=== PATIENT | female | born 1995 | race Caucasian/White ===

== ENCOUNTER 2020-05-12 03:42 | Outpatient (CLI) | payer BC, SELFPAY ==
[2020-05-14 17:14] LABS: COVID-19 RT-PCR Result NEGATIVE (Negative)
== END 2020-05-12 04:02 ==
DX: Z11.59 Encounter for screening for other viral diseases (principal)
CPT/HCPCS: U0003

== ENCOUNTER 2020-06-08 02:00 | Outpatient (CLI) | payer BC, SELFPAY ==
[2020-06-09 14:42] LABS: COVID-19 RT-PCR UVMMC Result Negative (Negative)
== END 2020-06-08 02:20 ==
DX: Z20.828 Contact with and (suspected) exposure to other viral communicable diseases (principal)
CPT/HCPCS: U0003

== ENCOUNTER 2020-10-13 09:02 | Outpatient (CLI) | payer BC, SELFPAY ==
[2020-10-14 14:16] LABS: COVID-19 RT-PCR UVMMC Result Negative (Negative)
== END 2020-10-13 09:03 | disposition home or self-care (01) ==
DX: Z20.822 Contact with and (suspected) exposure to COVID-19 (principal)
CPT/HCPCS: U0003

== ENCOUNTER 2022-04-12 17:47 | Outpatient (REF) | payer BC, SELFPAY | END 2022-04-12 17:48 | disposition home or self-care (01) | LOC: LBN 17:47 | PROVIDERS: PCP Nurse Practitioner Family; Visit Provider Nurse Practitioner Family | DX: J02.9 Acute pharyngitis, unspecified (principal) | CPT/HCPCS: 87070 ==

== ENCOUNTER 2022-06-11 13:35 | Outpatient (REF) | payer BC, SELFPAY ==
--- NOTE | 2022-06-11 08:30 | PAPFT_PTH ---
PATIENT: Samanta Tellez LOC: [facility] U#:[id number] AGE/SX: 26/F ROOM: RE06/11/[address]: Levon Cowart DNP : 1995 BED: DIS: 06/11/2022 SPEC #: [id number] RECD: 06/12/22 13:15 STATUS: MILTON REMaico #: [id number] KERA: 06/11/22 08:[address]: Levon Mart DEPT: [facility] Cytology RECD BY: Sveta Portillo Tissues: 1 - CX/ENDOCX FOR PAP SMEARS Procedures: PAP THIN PREP/UVM Screening HPV DNA PROBE Comments: [id number]
[2022-06-11 14:07] LABS: HCT 38.7 % (36.0-46.0); HGB 12.5 g/dL (11.2-15.7); MCH 29.2 pg (27.0-33.0); MCHC 32.3 % (32.0-36.0); MCV 90 fL (80-95); MPV 11.3 fL (8.0-11.0); Platelet Count 254 10^3/uL (130-400); RBC 4.28 10^6/uL (3.93-5.22); RDW 13.4 % (11.7-14.6); RDW-SD 44.6 fL; WBC 5.33 10^3/uL (4.4-10.8)
[2022-06-11 14:16] LABS: ALT 19 U/L (14-59); AST 20 U/L (15-37); Albumin 3.8 g/dL (3.4-5.0); Alkaline Phosphatase 48 U/L (46-116); Anion Gap 9.5 mmol/L (3-11); BUN 13 mg/dL (7-18); Bilirubin, Total 0.3 mg/dL (0.2-1.0); CO2 25.5 mmol/L (21.0-32.0); CREATININE 0.8 mg/dL (0.55-1.02); Calcium 8.8 mg/dL (8.5-10.1); Calculated LDL 104 mg/dL (<100); Chloride 103 mmol/L (98-107); Cholesterol 218 mg/dL (<200); Glucose 83 mg/dL (74-106); HDL Cholesterol 105 mg/dL (40-60); Potassium 4.2 mmol/L (3.5-5.1); Sodium 138 mmol/L (136-145); Total Protein 7.5 g/dL (6.4-8.2); Triglyceride 48 mg/dL (<150)
[2022-06-12 09:59] LABS: Hepatitis C Ab w Rflx HCV PCR Negative (Negative)
[2022-06-12 10:23] LABS: HIV-1/2 Ag & Ab Screen Negative (Negative)
== END 2022-06-11 13:36 | disposition home or self-care (01) ==
LOC: LBN 13:35
PROVIDERS: PCP Nurse Practitioner Family; Visit Provider Nurse Practitioner Family
DX: Z13.220 Encounter for screening for lipoid disorders (principal); Z11.59 Encounter for screening for other viral diseases; Z11.4 Encounter for screening for human immunodeficiency virus [HIV]; Z12.4 Encounter for screening for malignant neoplasm of cervix; Z11.51 Encounter for screening for human papillomavirus (HPV); R53.83 Other fatigue
CPT/HCPCS: 80053; 80061; 85027; 86803; 87389; 88142; 87624

== ENCOUNTER 2022-12-27 14:04 | Emergency (ER) | payer BC, SELFPAY ==
[2022-12-27 14:20] VITALS: BP 110/72; PULSE 140; RESP 22; TEMP 38.1; O2SAT 100
--- NOTE | 2022-12-27 14:45 | DI.US_ITS ---
Exam(s) US PELVIS TRANSVAGINAL CT ABDOMEN PELVIS W EXAM: CT ABDOMEN PELVIS W CLINICAL HISTORY: RLQ abdominal pain and fever TECHNIQUE: Imaging Protocol: Axial computed tomography images with coronal and sagittal reformatted images were created and reviewed CONTRAST MATERIAL: Intravenous: Omnipaque 350 Contrast volume:73 mL Oral: No COMPARISON: US US PELVIS TRANSVAGINAL from 12/27/2022 FINDINGS: ABDOMEN: Lung Bases: Normal where visualized. Liver: Normal density. No measurable mass. Portal, Superior Mesenteric, and Splenic Veins: Unremarkable. Gallbladder and Biliary Tract: No radiodense calculus or dilation. Pancreas: Normal density, no abnormal calcifications or inflammatory process. Spleen: Normal. Adrenals: No masses seen. Kidneys: There are wedge-shaped areas of decreased attenuation in the left kidney. The findings rais e a question of pyelonephritis. No radiodense stones or obstructive uropathy. No masses seen. Abdominal Aorta: Abdominal portion non-dilated. Bowel: There is mild thickening of the wall of the distal stomach. This may be due to underdistentio n. There is no evidence of bowel obstruction. No other bowel wall thickening is seen. Appendix is unremarkable. Peritoneal Cavity: There is a trace amount of free fluid in the pelvis. No free air. Lymph Nodes: Within normal limits. Bones: Within normal limits for the patient's age. There is unilateral spondylolysis at L5 but no sp ondylolisthesis. Soft Tissues: Unremarkable. PELVIS: Bladder: Symmetric distention, no gross wall thickening. Reproductive Organs: There is a 6.1 x 5.1 cm left ovarian dermoid. The right ovary is unremarkable. The uterus is grossly unremarkable. Lymph Nodes: Within normal limits. Bones: Within normal limits for the patient's age. UTERUS: Position: Anteverted. Size: 6.3 long by 2.9 AP by 3.6 transverse cm Endometrium: 2 cm. Normal for patient's menstrual status. Myometrium: Unremarkable. Cervix: Unremarkable. OVARIES: The left ovarian dermoid is not well visualized on the ultrasound. It is best appreciated o n the CT scan from the same day. Right: 3.1 x 2.1 x 3 cm Cyst or mass: No suspicious cystic or solid masses. DOPPLER: Color: Uniform flow to to the right ovary. CUL-DE-SAC: Free fluid: None. Other: None. IMPRESSION: 1. There wedge-shaped deformities seen in the left kidney suspicious for pyelonephritis. 2. 6.1 x 5.1 cm left ovarian dermoid. 3. Normal appendix. 4. Mild thickening of the wall of the distal stomach. This may be due to underdistention. Gastritis cannot be excluded. 5. Findings were discussed with Dr. Yoder at 4:12 p.m. on 12/27/2022. RADIATION DOSE DELIVERED: 582.37mGy.cm Total DLP DATA REPOSITORY: All CT scans at this facility are submitted to the National Radiology Data Registry (NRDR) Dose Index Registry (DIR) with the [employer] (ACR). RADIATION OPTIMIZATION: All CT scans at this facility use at least one of these dose optimization te chniques: automated exposure control; mA and/or kV adjustment per patient size (includes targeted exa ms where dose is matched to clinical indication); or iterative reconstruction.
--- NOTE | 2022-12-27 14:45 | RT.EKG_ITS ---
APPROVED REPORT Exam: Resting ECG Reason for Exam: chest pain Patient Location: E HR:132 bpm ECG Measurements Heart Rate 132 AXIS AK 139 P 45 QRSd 81 QRS 90 QT 305 T -72 QTc 454 Conclusion Sinus tachycardia...rate> 99
--- NOTE | 2022-12-27 15:04 | ED.GENADUL_ITS ---
Discharge Plan Discharge Details Chief Complaint: Abd Prob Primary Care Provider: Levon Mart ED Provider: Tracey Lou Home Meds and New Rx's Prescriptions: No Action Claritin-D 12 Hour 5-120 mg tablet extended release 12 hr 1 tab PO Q12H Qty: 90 3RF mupirocin 2 % ointment 1 applic topical BID Qty: 15 0RF triamcinolone acetonide 0.025 % cream 1 applic TP BID Qty: 15 1RF Rx Instructions: Apply thin layer to skin patches on fingers 2x per day x 2 weeks. Then stop. norgestimate-ethinyl estradiol [Ortho Tri-Cyclen (28)] 0.18/0.215/0.25 mg-35 mcg (28) tablet 1 tab PO DAILY Qty: 84 4RF Medical Decision Making 27yo previously healthy female presenting from for fever and abdominal pain. Started yesterday with diffuse non-focal back pain, today with RLQ abdominal pain. Tachycardiac on arrival to 140's, febrile to 38.1; non-toxic appearing, normotensive. No red flags on history for back pain, no neurologic symptoms, low suspicion for spinal epidural abscess/etc, would not pursue further imaging at this time. Will treat for sepsis with presumed intrabdominal source with Zosyn/Zyvox; 20cc/kg IVFB. EKG sinus tachycardia. Labs, UA, CXR, cultures, CT abd/pelvis with contrast for intrabdominal pathology (? appendicitis), pelvic US for ovarian/pelvic pathology (? tubo-ovarian abscess). Sign out to oncoming physician, plan to followup labs/imaging, anticiapte admit medicine vs surgery pending results. HPI General Mode of arrival: ambulatory . Date/Time Provider Initiated Documentation: 12/27/22 14:13 . Information obtained by: patient . HPI Narrative: 27yo previously healthy female presenting from for fever and abdominal pain. Symptoms started yesterday with diffuse back pain. No focal pain, no hx of IV drug use or spinal instrumentation. This morning began to have RLQ abdominal pain. Nausea, no vomiting. LMP 12/03/23. No vaginal discharge. She other infectious symptoms; no rash, chills, dysuria, hematuria, cough, rhinorhea, shortness of breath, headache, neck pain, or other concerns. No known sick contacts. Related Data Home Medications Medication Instructions Recorded Confirmed loratadine 5 mg-pseudoephedrine ER 1 tab PO Q12H seasonal allergies 01/11/20 120 mg tablet,extended #90 tabs release,12hr (Claritin-D 12 Hour) triamcinolone acetonide 0.025 % 1 applic topical BID dermatitis 01/21/20 12/27/22 topical cream #15 grams norgestimate-ethinyl estradiol 1 tab PO DAILY contraception #84 05/20/22 12/27/22 0.18 mg/0.215mg/0.25mg-35 tabs mcg(28)tablet (Ortho Tri-Cyclen (28)) mupirocin 2 % topical ointment 1 applic topical BID #15 grams 09/24/22 12/27/22 Previous Rx's Medication Instructions Recorded loratadine 5 mg-pseudoephedrine ER 1 tab PO Q12H seasonal allergies 01/11/20 120 mg tablet,extended #90 tabs release,12hr (Claritin-D 12 Hour) triamcinolone acetonide 0.025 % 1 applic topical BID dermatitis 01/21/20 topical cream #15 grams norgestimate-ethinyl estradiol 1 tab PO DAILY contraception #84 05/20/22 0.18 mg/0.215mg/0.25mg-35 tabs mcg(28)tablet (Ortho Tri-Cyclen (28)) mupirocin 2 % topical ointment 1 applic topical BID #15 grams 09/24/22 Allergies Allergy/AdvReac Type Severity Reaction Status Date / Time pollen extracts Allergy Mild runny Verified 12/27/22 12:48 nose, itchy eyes. 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 Father High cholesterol Brother No problems noted. Maternal Grandfather , 54 Heart disease Paternal Grandfather , 80 Heart disease Maternal Grandmother Stroke Paternal Grandmother , 75 Cancer PANCREATIC CANCER Alzheimer disease Social History Smoking/Tobacco Use Status: Never Second Hand Exposure: No Smoking risk assessment performed?: Yes Alcohol Intake: current Alcohol Intake frequency: a few times a month Alcohol type: wine and hard liquor Drug use: Never Substance use type: does not use Counseling given: No Counseling provided: none Caregiver/Support person: No Household members: none Housing: apartment Communication Needs: None Do you need help understanding health information?: Rarely Pets and animals: No Sexually active: Yes Do you think of yourself as: straight/heterosexual Current gender identity: female What is your relationship status?: never How often do you talk on the phone with friends or family?: three or more times per week How often do you get together with friends or relatives?: three or more times per week How often do you attend jain or congregation services?: decline to answer Do you belong to any clubs or organized social groups?: no Panel score (0-1 are the most socially isolated patients): 1 What type of physical activity do you participate in: walking and resistance training Duration: 15-30 minutes/day Frequency: 3-4 times per week Jeni/Lutheran: No preference Special jeni needs: No Seatbelt use: always Helmet use: Yes Helmet use: always 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 Head: Normocephalic, atraumatic Neck: Trachea midline, Neck supple. ENT: MMM. No oropharygeal lesions or exudate. Cardiac: Tachycardiac, regular, no murmurs appreciated Resp: No respiratory distress. CTAB. Abd: Soft, non-distended. TTP of RLQ with no rebound or guarding. : No suprapubic tenderness. Extremities: No deformities. No peripheral edema. Neurologic: GCS 15. Moves all extremities freely against gravity Course Vital Signs Vital signs: Vital Signs Temperature 38.1 C H 12/27/22 14:20 Pulse 140 H 12/27/22 14:20 Respiratory Rate 22 12/27/22 14:20 Blood Pressure 110/72 12/27/22 14:20 Pulse Oximetry 100 12/27/22 14:20 Temperature 38.1 C H 12/27/22 14:20 Temperature Source Oral 12/27/22 14:20 Pulse 140 H 12/27/22 14:20 Respiratory Rate 22 12/27/22 14:20 Respiratory Effort Normal, Non-Labored 12/27/22 14:24 Blood Pressure 110/72 12/27/22 14:20 Blood Pressure Position Sitting 12/27/22 14:20 Pulse Oximetry 100 12/27/22 14:20 Pain Level 7 12/27/22 14:20 Lab/Test Results Lab/Test Results: 12/27/22 14:55 Blood Blood Culture - Pending 12/27/22 14:55 Blood Blood Culture - Pending Sign Out Sign Out Data: Sign Out Comment: 39yo previously health female presenting with fever, tachycardia, diffuse back pain, RLQ abdominal pain. No red flags for back pain. Treating for sepsis, presume intrabdominal source; IVF and broad spectrum abx initiated. Labs, CXR, UA, and CT pending. Will need admission. Last updated by Tracey Lou MD at 12/27/22 15:10
[2022-12-27 15:08] LABS: Lactate 1.1 mmol/L (0.6-1.4)
[2022-12-27 15:09] LABS: Abs Immature Grans 0.03 10^3/uL (0.0-0.06); Absolute Basophil Count 0.02 10^3/uL (0.0-0.2); Absolute Lymphocyte Count 0.63 10^3/uL (1.2-3.4); Absolute Monocyte Count 0.44 10^3/uL (0.1-0.8); Absolute Neutrophil Count 8.34 10^3/uL (1.2-6.7); Basophils % 0.2; HCT 39.6 % (36.0-46.0); HGB 13.3 g/dL (11.2-15.7); Immature Grans % 0.3; Lymphocytes % 6.7; MCH 29.5 pg (27.0-33.0); MCHC 33.6 % (32.0-36.0); MCV 88 fL (80-95); MPV 10.5 fL (8.0-11.0); Monocytes % 4.7; Neutrophils % 88.1; Platelet Count 208 10^3/uL (130-400); RBC 4.51 10^6/uL (3.93-5.22); RDW 12.5 % (11.7-14.6); RDW-SD 40.7 fL; WBC 9.46 10^3/uL (4.4-10.8)
[2022-12-27 15:12] LABS: ESR 7 mm/hr (0-20)
[2022-12-27] MEDS: Normal Saline 1,000 ML 1000 ML IV (15:13)
[2022-12-27] MEDS: PIPERACILLIN/TAZO 4.5 GM in Normal Saline 100 ML IVPB (15:15)
[2022-12-27 15:23] LABS: C-Reactive Protein 6.56 mg/dL (0.0-0.3)
[2022-12-27 15:26] LABS: ALT 18 U/L (14-59); AST 14 U/L (15-37); Albumin 3.8 g/dL (3.4-5.0); Alkaline Phosphatase 48 U/L (46-116); Anion Gap 9.7 mmol/L (3-11); BUN 10 mg/dL (7-18); Bilirubin, Total 0.4 mg/dL (0.2-1.0); CO2 25.3 mmol/L (21.0-32.0); CREATININE 0.9 mg/dL (0.55-1.02); Chloride 102 mmol/L (98-107); Estimated GFR 90.42 (mL/min/1.73m2); Glucose 121 mg/dL (74-106); Potassium 3.4 mmol/L (3.5-5.1); Sodium 137 mmol/L (136-145); Total Protein 7.9 g/dL (6.4-8.2)
[2022-12-27] MEDS: Omnipaque 350 MG/ML 100 ML BTL IJ (16:02)
[2022-12-27] MEDS: Normal Saline - Diluent 50 ML VIAL IJ (16:03)
--- NOTE | 2022-12-27 16:05 | DI.RAD_ITS ---
Exam(s) XR CHEST 2V PA LATERAL EXAM: XR CHEST 2V PA LATERAL CLINICAL HISTORY: sepsis, unknown origin TECHNIQUE: 2D digital imaging was performed of the chest. Two images were obtained. PA and lateral views were obtained. COMPARISON: No exams were available for comparison FINDINGS: MEDIASTINUM: Normal. HEART: Normal. PULMONARY VASCULATURE: Normal. LUNGS: Clear. PLEURAL SPACE: No pleural effusion or pneumothorax. BONE:Within normal limits for the patient's age. OTHER FINDINGS:Normal. IMPRESSION: No acute pulmonary findings. DATA REPOSITORY: RADIATION DOSE DELIVERED:
[2022-12-27 16:26] LABS: Bilirubin Negative (Negative); Blood Trace-lysed (Negative); Clarity Cloudy (Clear); Glucose Negative (Negative); Ketones 40 mg/dL (Negative); Leukocyte Esterase Negative (Negative); Nitrite Negative (Negative); Urobilinogen 0.2 mg/dL (Up to 0.2)
[2022-12-27] MEDS: LINEZOLID 600 MG/300 ML BAG 300 MG IVPB (16:26)
[2022-12-27] MEDS: Ketorolac 15 MG/ML VIAL IVP (16:27)
[2022-12-27 16:39] LABS: Bacteria Few HPF (Negative); C & S Indicated? No/Sq. Contamination; Casts Negative LPF (Negative); Crystals Negative HPF (Negative); Epithelial Cells Many HPF (Negative); Mucus Negative (Negative); RBC 0-2 HPF (0-2)
--- NOTE | 2022-12-27 18:18 | W.EDPROG ---
Date of service: 12/27/22 Time of Service: 18:23 Medical Decision Making patient signed out to me pending u/s and ct abdomen/pelvis, she has a normal appearing appendix, a left dermoid cyst and evidence of pyelo of the left kidney. She is still tachycardic and having lower back pain. She has never had a uti before, this morning felt she did try to urinate and wasn't able to fully empty her bladder, does have left cva tenderness, minimal rlq tenderness, had good flow to the right ovary on u/s. I did offer to provide more analgesia and pain medications and fluids and possible admission, she declines to have this done and requests d/c to home, she does have clinical decision making capacity, understands risks of worsening infection and is willing to accept these risks. She is of young age and has stable bp so feel she could be treated as an outpatient but did recommend additional fluid and analgesics and monitoring which she again declines. She will f/u with her pcp marie, return precautions given Sign Out Sign Out Data: Sign Out Comment: 39yo previously health female presenting with fever, tachycardia, diffuse back pain, RLQ abdominal pain. No red flags for back pain. Treating for sepsis, presume intrabdominal source; IVF and broad spectrum abx initiated. Labs, CXR, UA, and CT pending. Will need admission. Last updated by Tracey Lou MD at 12/27/22 15:10 Discharge Plan Disposition Patient Disposition: Home Condition: Stable Discharge Details Clinical Impression: Abdominal pain, Fever Primary Care Provider: Levon Mart ED Provider: Vinicius Yoder Home Meds and New Rx's Prescriptions: New ciprofloxacin HCl 500 mg tablet 500 mg PO BID Qty: 14 0RF ciprofloxacin HCl 500 mg tablet 500 mg PO BID Qty: 14 0RF ondansetron 4 mg tablet,disintegrating 4 mg PO Q8H PRN (Reason: nausea and vomiting) Qty: 30 0RF Continued Claritin-D 12 Hour 5-120 mg tablet extended release 12 hr 1 tab PO Q12H Qty: 90 3RF mupirocin 2 % ointment 1 applic topical BID Qty: 15 0RF triamcinolone acetonide 0.025 % cream 1 applic TP BID Qty: 15 1RF Rx Instructions: Apply thin layer to skin patches on fingers 2x per day x 2 weeks. Then stop. norgestimate-ethinyl estradiol [Ortho Tri-Cyclen (28)] 0.18/0.215/0.25 mg-35 mcg (28) tablet 1 tab PO DAILY Qty: 84 4RF Discharge Instructions Instructions: Kidney Infection (ED) Additional Instructions: your cat scan showed a normal appendix, you have evidence of a kidney infection. You also had a left sided dermoid cyst, you should follow up with your primary care provider or your obgyn for this follow up with your primary care provider within 1 week especially if still having symptoms if you feel more ill, have severe worsening pain or persistent vomiting return to the emergency department
== END 2022-12-27 18:43 | disposition home or self-care (01) ==
PROVIDERS: Student in an Organized Health Care Education/Training Program; Emergency Provider Emergency Medicine; PCP Nurse Practitioner Family
DX: R50.9 Fever, unspecified (principal); R10.31 Right lower quadrant pain; R00.0 Tachycardia, unspecified; D27.1 Benign neoplasm of left ovary
CPT/HCPCS: 80053; 81025; 85652; 87040; 93005; 96365; 96375; 99285; 71046; 74177; 76830; 76856; 81003; 81015; 83605; 85025; 86140; 93010; 99284; J1885; J2020; J2543; J3490

== ENCOUNTER 2022-12-27 22:06 | Outpatient (REF) | payer BC, SELFPAY ==
[2022-12-27 21:04] LABS: Bilirubin Negative (Negative); Blood Negative (Negative); Clarity Cloudy (Clear); Glucose Negative (Negative); Ketones 15 mg/dL (Negative); Leukocyte Esterase Negative (Negative); Nitrite Negative (Negative); Specific Gravity 1.025 (1.005-1.025); Urobilinogen 0.2 mg/dL (Up to 0.2); pH 6.5 (5-8)
[2022-12-27 21:29] LABS: Bacteria Negative HPF (Negative); C & S Indicated? No; Casts Negative LPF (Negative); Crystals Many Amorphous HPF (Negative); Epithelial Cells Rare HPF (Negative); Mucus Trace (Negative); RBC 0-2 HPF (0-2); WBC 0-2 HPF (0-5)
== END 2022-12-27 22:07 | disposition home or self-care (01) ==
LOC: LBN 22:06
PROVIDERS: PCP Nurse Practitioner Family; Visit Provider Physician Assistant
DX: N39.0 Urinary tract infection, site not specified (principal)
CPT/HCPCS: 81003; 81015

== ENCOUNTER 2023-07-21 18:42 | Outpatient (REF) | payer BC, SELFPAY ==
--- NOTE | 2023-07-21 13:00 | PAPFT_PTH ---
PATIENT: Samanta Tellez LOC: [facility] U#:[id number] AGE/SX: 27/F ROOM: RE07/21/[address]: Levon Cowart DNP : 1995 BED: DIS: 07/21/2023 SPEC #: [id number] RECD: 07/22/23 12:53 STATUS: [place] REQ #: [id number] KERA: 07/21/23 13:[address]: Levon Mart DEPT: [facility] Cytology RECD BY: Sveta Portillo Tissues: 1 - CX/ENDOCX FOR PAP SMEARS Procedures: PAP THIN PREP/UVM Screening Comments: [id number]
[2023-07-21 21:27] LABS: Absolute Basophil Count 0.05 10^3/uL (0.0-0.2); Absolute Eosinophil Count 0.05 10^3/uL (0.0-0.7); Absolute Monocyte Count 0.46 10^3/uL (0.1-0.8); Absolute Neutrophil Count 2.13 10^3/uL (1.2-6.7); HCT 40.7 % (36.0-46.0); HGB 13.5 g/dL (11.2-15.7); Lymphocytes % 47.2; MCH 29.3 pg (27.0-33.0); MCHC 33.2 % (32.0-36.0); MCV 88 fL (80-95); MPV 10.4 fL (8.0-11.0); Neutrophils % 41.8; Platelet Count 247 10^3/uL (130-400); RBC 4.61 10^6/uL (3.93-5.22); RDW 12.9 % (11.7-14.6); RDW-SD 41.7 fL; WBC 5.09 10^3/uL (4.4-10.8)
[2023-07-21 21:37] LABS: Anion Gap 12.4 mmol/L (3-11); BUN 15 mg/dL (7-18); CO2 25.6 mmol/L (21.0-32.0); CREATININE 0.8 mg/dL (0.55-1.02); Calcium 8.9 mg/dL (8.5-10.1); Chloride 104 mmol/L (98-107); Estimated GFR 104.15 (mL/min/1.73m2); Glucose 86 mg/dL (74-106); Potassium 4.1 mmol/L (3.5-5.1); Sodium 142 mmol/L (136-145)
[2023-07-21 21:54] LABS: COMMENT (LAB VIEW ONLY) 29.68 mg/dL
[2023-07-21 22:04] LABS: Microalb ug/mg Crea 4.7 ug/mg Cr
== END 2023-07-21 18:43 | disposition home or self-care (01) ==
LOC: LBN 18:42
PROVIDERS: PCP Nurse Practitioner Family; Referring Provider Nurse Practitioner Family; Visit Provider Nurse Practitioner Family
DX: R53.83 Other fatigue (principal); N12 Tubulo-interstitial nephritis, not specified as acute or chronic
CPT/HCPCS: 80048; 88142; 82043; 82570; 85025; 87086